=== PATIENT | male | born 1950 | race Caucasian/White ===

== ENCOUNTER 2019-09-04 10:44 | Inpatient (IN) | payer OTHER ==
[~2019-09-04] VITALS: Ht 170.2 cm; Wt 91.2 kg
[2019-09-04 10:30] VITALS: BP 137/73
[2019-09-04 11:18] LABS: ABG BASE EXCESS 1.7 mmol/L (-2.0-2.0); ARTERIAL BLOOD GAS PH 7.364 (7.35-7.45)
[2019-09-04] MEDS ORDERED: ASPIRIN ADULT L81 M1 PO (11:23)
[2019-09-04] MEDS ORDERED: PROAIR HFA8.5 GM INH (11:23)
[2019-09-04] MEDS ORDERED: ATORVASTATIN CA40 M1 PO (11:24)
[2019-09-04] MEDS ORDERED: VITAMIN D325 MCG PO (11:25)
[2019-09-04] MEDS ORDERED: CYMBALTA30 MG PO (11:25)
[2019-09-04] MEDS ORDERED: LISINOPRIL20 MG PO (11:25)
[2019-09-04] MEDS ORDERED: METFORMIN HYDR500 MG PO (11:26)
[2019-09-04] MEDS ORDERED: OMEPRAZOLE MAGN20 MG PO (11:26)
[2019-09-04 11:57] LABS: HEMATOCRIT 43.2 % (42.0-52.0); MEAN CELL VOLUME 90.4 fl (80.0-94.0); MEAN CORPUSCULAR HGB 28.9 pg (27.0-31.0); MEAN CORPUSCULAR HGB CONC 31.9 g/dl (33.0-37.0); MEAN PLATELET VOLUME 9.3 fl (9.6-12.3); PLATELET COUNT AUTOMATED 222 10*3/uL (130-400); RED BLOOD COUNT 4.78 10*6/uL (4.50-5.90); RED CELL DISTRI WIDTH 13.6 % (0-14.5); WHITE BLOOD COUNT 13.2 10*3/uL (4.8-10.8)
[2019-09-04 12:19] LABS: ALBUMIN 3.5 gm/dl (3.1-4.5); ALKALINE PHOSPHATASE 74 U/L (45-117); BUN 16 mg/dl (7-24); CHLORIDE 106 mmol/L (98-107); CREATININE 1.07 mg/dL (0.70-1.30); LDH 155 U/L (87-241); POTASSIUM 4.1 mmol/L (3.5-5.1); SGOT/AST 15 IU/L (3-35); SGPT/ALT 22 U/L (12-78); SODIUM 138 mmol/L (136-145); TOTAL PROTEIN 7.5 gm/dL (6.4-8.2)
[2019-09-04 12:21] LABS: TROPONIN I < 0.015 ng/ml (<0.045)
[2019-09-04 12:32] LABS: BASOPHILS 2 % (0-1); PLATELET SUFFICIENCY NORMAL (NORMAL); TOTAL CELLS COUNTED 100 #CELLS
[2019-09-04 16:00] VITALS: BP 122/59
[2019-09-05] VITALS: BP 131/78
[2019-09-05 04:00] VITALS: BP 133/67
[2019-09-05 06:08] LABS: HEP B CORE AB, IGM Negative (Negative); HEPATITIS B SURFACE AG Negative (Negative); HEPATITIS C VIRUS ANTIBODY >11.0 s/co (0.0-0.9)
[2019-09-05 06:09] LABS: HEMATOCRIT 44.7 % (42.0-52.0); MEAN CELL VOLUME 91.2 fl (80.0-94.0); MEAN CORPUSCULAR HGB 29.2 pg (27.0-31.0); MEAN PLATELET VOLUME 9.7 fl (9.6-12.3); PLATELET COUNT AUTOMATED 219 10*3/uL (130-400); RED CELL DISTRI WIDTH 13.7 % (0-14.5); WHITE BLOOD COUNT 14.3 10*3/uL (4.8-10.8)
[2019-09-05 06:35] LABS: ALBUMIN 3.6 gm/dl (3.1-4.5); ALKALINE PHOSPHATASE 81 U/L (45-117); BUN 16 mg/dl (7-24); CHLORIDE 105 mmol/L (98-107); CPK 100 U/L (39-308); CREATININE 1.03 mg/dL (0.70-1.30); POTASSIUM 4.2 mmol/L (3.5-5.1); SGOT/AST 14 IU/L (3-35); SGPT/ALT 24 U/L (12-78); SODIUM 139 mmol/L (136-145); TOTAL PROTEIN 7.7 gm/dL (6.4-8.2)
[2019-09-05 07:10] LABS: BASOPHILS 1 % (0-1); PLATELET SUFFICIENCY NORMAL (NORMAL); TOTAL CELLS COUNTED 100 #CELLS
[2019-09-05 08:00] VITALS: BP 134/66
[2019-09-05 08:41] LABS: ABG BASE EXCESS 3.4 mmol/L (-2.0-2.0); ARTERIAL BLOOD GAS PH 7.354 (7.35-7.45)
[2019-09-05 12:00] VITALS: BP 120/60
[2019-09-05 16:00] VITALS: BP 120/64
[2019-09-05 20:00] VITALS: BP 129/65
[2019-09-06] VITALS: BP 135/68
[2019-09-06 05:45] LABS: BASO % 0.1 % (0.0-1.0); EOS % 0.1 % (1.0-4.0); HEMATOCRIT 45.4 % (42.0-52.0); LYMPH # 0.7 10*3/uL (1.3-4.4); LYMPH % 8.1 % (27.0-41.0); MEAN CELL VOLUME 89.2 fl (80.0-94.0); MEAN CORPUSCULAR HGB 28.7 pg (27.0-31.0); MEAN CORPUSCULAR HGB CONC 32.2 g/dl (33.0-37.0); MEAN PLATELET VOLUME 9.6 fl (9.6-12.3); MONO # 0.3 10*3/uL (0.1-1.0); MONO % 3.5 % (3.0-9.0); NEUT % 87.8 % (47.0-73.0); PLATELET COUNT AUTOMATED 244 10*3/uL (130-400); RED BLOOD COUNT 5.09 10*6/uL (4.50-5.90); RED CELL DISTRI WIDTH 13.3 % (0-14.5); WHITE BLOOD COUNT 9.2 10*3/uL (4.8-10.8)
[2019-09-06 07:35] LABS: ALBUMIN 3.7 gm/dl (3.1-4.5); ALKALINE PHOSPHATASE 81 U/L (45-117); BUN 25 mg/dl (7-24); CHLORIDE 104 mmol/L (98-107); CREATININE 1.04 mg/dL (0.70-1.30); POTASSIUM 4.3 mmol/L (3.5-5.1); SGOT/AST 13 IU/L (3-35); SGPT/ALT 26 U/L (12-78); SODIUM 138 mmol/L (136-145); TOTAL PROTEIN 8.2 gm/dL (6.4-8.2)
[2019-09-06 07:40] LABS: CPK 59 U/L (39-308)
[2019-09-06 08:00] VITALS: BP 142/68
[2019-09-06 09:39] LABS: HEPATITIS C AB >11.0 (0.0-0.9)
[2019-09-06 12:00] VITALS: BP 147/79
[2019-09-06 12:02] LABS: ABG BASE EXCESS 3.3 mmol/L (-2.0-2.0); ARTERIAL BLOOD GAS PH 7.398 (7.35-7.45)
[2019-09-06 16:00] VITALS: BP 138/68
[2019-09-06 20:00] VITALS: BP 142/67
[2019-09-07] VITALS: BP 133/64
[2019-09-07 06:46] LABS: HEMATOCRIT 46.3 % (42.0-52.0); MEAN CELL VOLUME 90.6 fl (80.0-94.0); MEAN CORPUSCULAR HGB 28.8 pg (27.0-31.0); MEAN CORPUSCULAR HGB CONC 31.7 g/dl (33.0-37.0); MEAN PLATELET VOLUME 9.9 fl (9.6-12.3); PLATELET COUNT AUTOMATED 258 10*3/uL (130-400); RED BLOOD COUNT 5.11 10*6/uL (4.50-5.90); RED CELL DISTRI WIDTH 13.5 % (0-14.5); WHITE BLOOD COUNT 13.1 10*3/uL (4.8-10.8)
[2019-09-07 06:51] LABS: ALBUMIN 3.6 gm/dl (3.1-4.5); ALKALINE PHOSPHATASE 73 U/L (45-117); BUN 34 mg/dl (7-24); CHLORIDE 103 mmol/L (98-107); CPK 50 U/L (39-308); CREATININE 1.01 mg/dL (0.70-1.30); POTASSIUM 4.1 mmol/L (3.5-5.1); SGOT/AST 13 IU/L (3-35); SGPT/ALT 27 U/L (12-78); SODIUM 138 mmol/L (136-145); TOTAL PROTEIN 7.9 gm/dL (6.4-8.2)
[2019-09-07 07:24] LABS: ABG BASE EXCESS 3.2 mmol/L (-2.0-2.0); ARTERIAL BLOOD GAS PH 7.394 (7.35-7.45)
[2019-09-07 07:25] LABS: PLATELET SUFFICIENCY NORMAL (NORMAL); TOTAL CELLS COUNTED 100 #CELLS
[2019-09-07 08:00] VITALS: BP 132/66
[2019-09-07 12:00] VITALS: BP 131/64
[2019-09-07 16:00] VITALS: BP 120/74
[2019-09-07 20:00] VITALS: BP 125/57
[2019-09-08] VITALS: BP 112/60
[2019-09-08 06:17] LABS: BASO % 0.1 % (0.0-1.0); HEMATOCRIT 43.8 % (42.0-52.0); LYMPH # 0.7 10*3/uL (1.3-4.4); LYMPH % 6.5 % (27.0-41.0); MEAN CELL VOLUME 89.8 fl (80.0-94.0); MEAN CORPUSCULAR HGB 28.5 pg (27.0-31.0); MEAN CORPUSCULAR HGB CONC 31.7 g/dl (33.0-37.0); MEAN PLATELET VOLUME 9.9 fl (9.6-12.3); MONO # 0.8 10*3/uL (0.1-1.0); MONO % 7.5 % (3.0-9.0); NEUT # 9.5 10*3/uL (2.3-7.9); NEUT % 85.4 % (47.0-73.0); PLATELET COUNT AUTOMATED 249 10*3/uL (130-400); RED BLOOD COUNT 4.88 10*6/uL (4.50-5.90); RED CELL DISTRI WIDTH 13.5 % (0-14.5); WHITE BLOOD COUNT 11.2 10*3/uL (4.8-10.8)
[2019-09-08 06:22] LABS: ALBUMIN 3.3 gm/dl (3.1-4.5); ALKALINE PHOSPHATASE 63 U/L (45-117); BUN 29 mg/dl (7-24); CHLORIDE 104 mmol/L (98-107); CREATININE 0.87 mg/dL (0.70-1.30); POTASSIUM 3.9 mmol/L (3.5-5.1); SGOT/AST 14 IU/L (3-35); SGPT/ALT 35 U/L (12-78); SODIUM 140 mmol/L (136-145); TOTAL PROTEIN 7.1 gm/dL (6.4-8.2)
[2019-09-08 08:00] VITALS: BP 137/74
[2019-09-08 08:42] LABS: ABG BASE EXCESS 5.2 mmol/L (-2.0-2.0); ARTERIAL BLOOD GAS PH 7.425 (7.35-7.45)
[2019-09-08 12:00] VITALS: BP 122/52
[2019-09-08 16:00] VITALS: BP 118/52
[2019-09-08 20:00] VITALS: BP 124/60
[2019-09-09] VITALS: BP 134/60
[2019-09-09 06:38] LABS: BASO % 0.1 % (0.0-1.0); HEMATOCRIT 43.8 % (42.0-52.0); LYMPH # 0.9 10*3/uL (1.3-4.4); LYMPH % 8.5 % (27.0-41.0); MEAN CELL VOLUME 90.9 fl (80.0-94.0); MEAN PLATELET VOLUME 9.7 fl (9.6-12.3); MONO # 0.9 10*3/uL (0.1-1.0); MONO % 8.9 % (3.0-9.0); NEUT # 8.3 10*3/uL (2.3-7.9); PLATELET COUNT AUTOMATED 234 10*3/uL (130-400); RED BLOOD COUNT 4.82 10*6/uL (4.50-5.90); RED CELL DISTRI WIDTH 13.8 % (0-14.5); WHITE BLOOD COUNT 10.2 10*3/uL (4.8-10.8)
[2019-09-09 06:55] LABS: ALBUMIN 3.2 gm/dl (3.1-4.5); ALKALINE PHOSPHATASE 49 U/L (45-117); BUN 32 mg/dl (7-24); CHLORIDE 104 mmol/L (98-107); CREATININE 1.02 mg/dL (0.70-1.30); POTASSIUM 4.5 mmol/L (3.5-5.1); SGOT/AST 14 IU/L (3-35); SGPT/ALT 47 U/L (12-78); SODIUM 139 mmol/L (136-145); TOTAL PROTEIN 6.9 gm/dL (6.4-8.2)
[2019-09-09 07:43] LABS: ABG BASE EXCESS 4.5 mmol/L (-2.0-2.0); ARTERIAL BLOOD GAS PH 7.407 (7.35-7.45)
[2019-09-09 08:00] VITALS: BP 126/50
[2019-09-09 12:00] VITALS: BP 138/74
[2019-09-09 16:00] VITALS: BP 124/67
[2019-09-09 20:00] VITALS: BP 131/63
[2019-09-10] VITALS: BP 131/69
[2019-09-10 05:54] LABS: HEMATOCRIT 44.4 % (42.0-52.0); LYMPH # 0.8 10*3/uL (1.3-4.4); LYMPH % 8.2 % (27.0-41.0); MEAN CELL VOLUME 90.6 fl (80.0-94.0); MEAN CORPUSCULAR HGB 28.2 pg (27.0-31.0); MEAN CORPUSCULAR HGB CONC 31.1 g/dl (33.0-37.0); MEAN PLATELET VOLUME 9.9 fl (9.6-12.3); MONO # 0.6 10*3/uL (0.1-1.0); MONO % 6.4 % (3.0-9.0); PLATELET COUNT AUTOMATED 225 10*3/uL (130-400); RED CELL DISTRI WIDTH 13.6 % (0-14.5); WHITE BLOOD COUNT 9.4 10*3/uL (4.8-10.8)
[2019-09-10 06:21] LABS: ALBUMIN 3.1 gm/dl (3.1-4.5); ALKALINE PHOSPHATASE 62 U/L (45-117); BUN 26 mg/dl (7-24); CHLORIDE 104 mmol/L (98-107); CREATININE 0.86 mg/dL (0.70-1.30); POTASSIUM 4.8 mmol/L (3.5-5.1); SGOT/AST 14 IU/L (3-35); SGPT/ALT 41 U/L (12-78); SODIUM 137 mmol/L (136-145); TOTAL PROTEIN 6.7 gm/dL (6.4-8.2)
[2019-09-10 08:00] VITALS: BP 128/54
[2019-09-10 08:29] LABS: ABG BASE EXCESS 3.6 mmol/L (-2.0-2.0); ARTERIAL BLOOD GAS PH 7.42 (7.35-7.45)
[2019-09-10 11:52] LABS: ARTERIAL BLOOD GAS PH 7.442 (7.35-7.45)
[2019-09-10 12:00] VITALS: BP 124/64
[2019-09-10 16:00] VITALS: BP 128/80
[2019-09-10 20:00] VITALS: BP 135/76
[2019-09-11] VITALS: BP 124/61
[2019-09-11 06:08] LABS: BASO % 0.3 % (0.0-1.0); EOS # 0.6 10*3/uL (0.0-0.4); EOS % 4.9 % (1.0-4.0); LYMPH # 3.2 10*3/uL (1.3-4.4); LYMPH % 28.1 % (27.0-41.0); MEAN CELL VOLUME 92.5 fl (80.0-94.0); MEAN CORPUSCULAR HGB 28.7 pg (27.0-31.0); MEAN CORPUSCULAR HGB CONC 31.1 g/dl (33.0-37.0); MEAN PLATELET VOLUME 9.6 fl (9.6-12.3); MONO # 0.9 10*3/uL (0.1-1.0); MONO % 7.7 % (3.0-9.0); NEUT # 6.8 10*3/uL (2.3-7.9); NEUT % 58.5 % (47.0-73.0); PLATELET COUNT AUTOMATED 233 10*3/uL (130-400); RED BLOOD COUNT 5.08 10*6/uL (4.50-5.90); RED CELL DISTRI WIDTH 13.5 % (0-14.5); WHITE BLOOD COUNT 11.5 10*3/uL (4.8-10.8)
[2019-09-11 06:26] LABS: ALBUMIN 3.2 gm/dl (3.1-4.5); BUN 30 mg/dl (7-24); CHLORIDE 102 mmol/L (98-107); POTASSIUM 4.5 mmol/L (3.5-5.1); SODIUM 139 mmol/L (136-145)
[2019-09-11 06:30] LABS: ALKALINE PHOSPHATASE 63 U/L (45-117); CREATININE 1.05 mg/dL (0.70-1.30); SGOT/AST 17 IU/L (3-35); SGPT/ALT 44 U/L (12-78); TOTAL PROTEIN 6.7 gm/dL (6.4-8.2)
[2019-09-11 08:00] VITALS: BP 127/67
[2019-09-11 09:12] LABS: ARTERIAL BLOOD GAS PH 7.449 (7.35-7.45)
[2019-09-11 10:06] LABS: HEPATITIS C QUANTITATION HCV Not Detected IU/mL (.)
[2019-09-11 16:00] VITALS: BP 147/68
== END 2019-09-11 18:22 | DRG 871 ==
LOC: 4E 10:44
PROVIDERS: Family Medicine; Internal Medicine; Internal Medicine Critical Care Medicine; Student in an Organized Health Care Education/Training Program; ADMIT Internal Medicine
DX: A41.9 Sepsis, unspecified organism (principal); J96.01 Acute respiratory failure with hypoxia; J96.02 Acute respiratory failure with hypercapnia; U07.1 COVID-19; J44.1 Chronic obstructive pulmonary disease with (acute) exacerbation; E87.3 Alkalosis; J45.901 Unspecified asthma with (acute) exacerbation; D68.59 Other primary thrombophilia; D64.9 Anemia, unspecified; E78.5 Hyperlipidemia, unspecified; K21.9 Gastro-esophageal reflux disease without esophagitis; I10 Essential (primary) hypertension; E11.65 Type 2 diabetes mellitus with hyperglycemia; I71.4 Abdominal aortic aneurysm, without rupture; R65.20 Severe sepsis without septic shock; B18.2 Chronic viral hepatitis C; E83.41 Hypermagnesemia; T38.0X5A Adverse effect of glucocorticoids and synthetic analogues, initial encounter; Y92.238 Other place in hospital as the place of occurrence of the external cause; Z87.891 Personal history of nicotine dependence; Z88.8 Allergy status to other drugs, medicaments and biological substances; Z83.3 Family history of diabetes mellitus; Z79.899 Other long term (current) drug therapy; Z79.82 Long term (current) use of aspirin; Z79.84 Long term (current) use of oral hypoglycemic drugs; R70.0 Elevated erythrocyte sedimentation rate; R79.82 Elevated C-reactive protein (CRP)

== ENCOUNTER 2019-10-11 09:58 | Inpatient (IN) | payer OTHER ==
[~2019-10-11] VITALS: Ht 175.3 cm; Wt 94.1 kg
[2019-10-11 09:58] VITALS: BP 110/0
[~2019-10-11 09:58] MED LIST: ASPIRIN ADULT L81 M1 PO; ATORVASTATIN CA40 M1 PO; CYMBALTA30 MG PO; LISINOPRIL20 MG PO; METFORMIN HYDR500 MG PO; OMEPRAZOLE MAGN20 MG PO; PROAIR HFA8.5 GM INH; VITAMIN D325 MCG PO
[2019-10-11] MEDS ORDERED: VITAMIN D325 MC1 PO (10:06)
[2019-10-11] MEDS ORDERED: ASMANEX INH (10:07)
[2019-10-11 10:26] LABS: BASO # 0.2 10*3/uL (0.0-0.1); BASO % 1.4 % (0.0-1.0); EOS # 1.9 10*3/uL (0.0-0.4); EOS % 15.6 % (1.0-4.0); HEMATOCRIT 43.6 % (42.0-52.0); LYMPH # 2.3 10*3/uL (1.3-4.4); LYMPH % 18.9 % (27.0-41.0); MEAN CELL VOLUME 88.4 fl (80.0-94.0); MEAN CORPUSCULAR HGB 28.6 pg (27.0-31.0); MEAN CORPUSCULAR HGB CONC 32.3 g/dl (33.0-37.0); MEAN PLATELET VOLUME 9.3 fl (9.6-12.3); MONO # 1.3 10*3/uL (0.1-1.0); NEUT # 6.2 10*3/uL (2.3-7.9); NEUT % 52.1 % (47.0-73.0); PLATELET COUNT AUTOMATED 275 10*3/uL (130-400); RED BLOOD COUNT 4.93 10*6/uL (4.50-5.90); RED CELL DISTRI WIDTH 13.7 % (0-14.5)
[2019-10-11 10:38] LABS: ACT PARTIAL THROMBO TIME 24.3 SECONDS (20.0-32.1)
[2019-10-11 10:43] LABS: ALBUMIN 3.7 gm/dl (3.1-4.5); ALKALINE PHOSPHATASE 77 U/L (45-117); BUN 19 mg/dl (7-24); CHLORIDE 110 mmol/L (98-107); CPK 54 U/L (39-308); CREATININE 1.05 mg/dL (0.70-1.30); LDH 170 U/L (87-241); POTASSIUM 3.9 mmol/L (3.5-5.1); SGOT/AST 12 IU/L (3-35); SGPT/ALT 23 U/L (12-78); SODIUM 142 mmol/L (136-145); TOTAL PROTEIN 7.6 gm/dL (6.4-8.2)
[2019-10-11 10:45] LABS: TROPONIN I < 0.015 ng/ml (<0.045)
[2019-10-11 10:54] LABS: ARTERIAL BLOOD GAS PH 7.283 (7.35-7.45)
[2019-10-11 11:33] VITALS: BP 150/97
[2019-10-11 14:35] VITALS: BP 110/63
[2019-10-11 14:58] VITALS: BP 118/61
[2019-10-11 15:02] LABS: ABG BASE EXCESS -1.3 mmol/L (-2.0-2.0); ARTERIAL BLOOD GAS PH 7.329 (7.35-7.45)
[2019-10-11 20:00] VITALS: BP 118/58
[2019-10-12] VITALS: BP 106/60
[2019-10-12 06:35] LABS: BASO % 0.2 % (0.0-1.0); EOS % 0.1 % (1.0-4.0); HEMATOCRIT 32.1 % (42.0-52.0); LYMPH # 0.6 10*3/uL (1.3-4.4); LYMPH % 6.5 % (27.0-41.0); MEAN CELL VOLUME 91.5 fl (80.0-94.0); MEAN CORPUSCULAR HGB 28.8 pg (27.0-31.0); MEAN CORPUSCULAR HGB CONC 31.5 g/dl (33.0-37.0); MEAN PLATELET VOLUME 9.6 fl (9.6-12.3); MONO # 0.3 10*3/uL (0.1-1.0); MONO % 3.8 % (3.0-9.0); NEUT # 7.5 10*3/uL (2.3-7.9); NEUT % 88.8 % (47.0-73.0); PLATELET COUNT AUTOMATED 169 10*3/uL (130-400); RED BLOOD COUNT 3.51 10*6/uL (4.50-5.90); WHITE BLOOD COUNT 8.4 10*3/uL (4.8-10.8)
[2019-10-12 06:43] LABS: ACT PARTIAL THROMBO TIME 26.9 SECONDS (20.0-32.1); INTERNATIONAL NORM RATIO 1.2 (2.0-3.5)
[2019-10-12 06:45] LABS: ALBUMIN 2.5 gm/dl (3.1-4.5); ALKALINE PHOSPHATASE 47 U/L (45-117); BUN 12 mg/dl (7-24); CHLORIDE 119 mmol/L (98-107); CHOLESTEROL 81 mg/dL (<200); CREATININE 0.65 mg/dL (0.70-1.30); FREE T4 1.04 ng/dl (0.76-1.46); HDL CHOLESTEROL 30 mg/dl (40-60); LDL CHOLESTEROL 45 mg/dL (9-159); POTASSIUM 3.3 mmol/L (3.5-5.1); SGOT/AST 8 IU/L (3-35); SGPT/ALT 14 U/L (12-78); SODIUM 146 mmol/L (136-145); TRIGLYCERIDES 30 mg/dl (<150); VLDL CHOLESTEROL 6 mg/dL (6-40)
[2019-10-12 06:50] LABS: THYROID STIM HORMONE (HS) 0.395 uIU/ml (0.358-4.75)
[2019-10-12 07:45] LABS: ABG BASE EXCESS -1.2 mmol/L (-2.0-2.0); ARTERIAL BLOOD GAS PH 7.369 (7.35-7.45)
[2019-10-12 08:00] VITALS: BP 108/63
[2019-10-12 08:17] LABS: VITAMIN D, 25-HYDROXY 68.5 ng/mL (30-100)
[2019-10-12 08:44] LABS: BACTERIA TRACE; BILIRUBIN NEGATIVE (NEGATIVE); BLOOD NEGATIVE (NEGATIVE); CLARITY SL CLOUDY (CLEAR); COLOR YELLOW (YELLOW); GLUCOSE 2+ (NEGATIVE); KETONE NEGATIVE (NEGATIVE); LEUKO ESTERASE NEGATIVE (NEGATIVE); NITRITE NEGATIVE (NEGATIVE); RBC 0-2 rbc/hpf (0-2); SPECIFIC GRAVITY 1.015 (1.005-1.030); UROBILINOGEN 0.2 E.U./dl (0.2-1.0); WBC 0-2 wbc/hpf (0-5)
[2019-10-12 12:00] VITALS: BP 114/65
[2019-10-12 16:00] VITALS: BP 115/59
[2019-10-12 20:00] VITALS: BP 135/78
[2019-10-13] VITALS: BP 127/72
[2019-10-13 06:25] LABS: HEMATOCRIT 38.6 % (42.0-52.0); MEAN CELL VOLUME 91.7 fl (80.0-94.0); MEAN CORPUSCULAR HGB 27.8 pg (27.0-31.0); MEAN CORPUSCULAR HGB CONC 30.3 g/dl (33.0-37.0); MEAN PLATELET VOLUME 9.6 fl (9.6-12.3); PLATELET COUNT AUTOMATED 213 10*3/uL (130-400); RED BLOOD COUNT 4.21 10*6/uL (4.50-5.90); RED CELL DISTRI WIDTH 14.2 % (0-14.5)
[2019-10-13 06:47] LABS: BUN 19 mg/dl (7-24); CHLORIDE 113 mmol/L (98-107)
[2019-10-13 06:51] LABS: ALKALINE PHOSPHATASE 59 U/L (45-117); CREATININE 0.89 mg/dL (0.70-1.30); SGOT/AST 16 IU/L (3-35); SGPT/ALT 21 U/L (12-78); TOTAL PROTEIN 6.1 gm/dL (6.4-8.2)
[2019-10-13 06:52] LABS: PLATELET SUFFICIENCY NORMAL (NORMAL); TOTAL CELLS COUNTED 100 #CELLS; TOXIC GRANULATION SLIGHT; VACUOLATION OF NEUTROPHILS SLIGHT
[2019-10-13 06:53] LABS: BURR CELLS FEW; OVALOCYTES FEW
[2019-10-13 06:56] LABS: SODIUM 142 mmol/L (136-145)
[2019-10-13 06:59] LABS: POTASSIUM 4.9 mmol/L (3.5-5.1)
[2019-10-13 08:00] VITALS: BP 139/61
[2019-10-13 12:00] VITALS: BP 137/67
[2019-10-13 20:00] VITALS: BP 137/67
[2019-10-14] VITALS: BP 115/74
[2019-10-14 06:42] LABS: BASO % 0.2 % (0.0-1.0); HEMATOCRIT 39.8 % (42.0-52.0); LYMPH # 0.8 10*3/uL (1.3-4.4); LYMPH % 6.8 % (27.0-41.0); MEAN CELL VOLUME 89.8 fl (80.0-94.0); MEAN CORPUSCULAR HGB 28.2 pg (27.0-31.0); MEAN CORPUSCULAR HGB CONC 31.4 g/dl (33.0-37.0); MEAN PLATELET VOLUME 9.4 fl (9.6-12.3); MONO # 0.7 10*3/uL (0.1-1.0); MONO % 6.1 % (3.0-9.0); NEUT # 9.9 10*3/uL (2.3-7.9); NEUT % 85.6 % (47.0-73.0); PLATELET COUNT AUTOMATED 204 10*3/uL (130-400); RED BLOOD COUNT 4.43 10*6/uL (4.50-5.90); RED CELL DISTRI WIDTH 14.1 % (0-14.5); WHITE BLOOD COUNT 11.5 10*3/uL (4.8-10.8)
[2019-10-14 07:14] LABS: ALBUMIN 3.1 gm/dl (3.1-4.5); ALKALINE PHOSPHATASE 59 U/L (45-117); BUN 21 mg/dl (7-24); CHLORIDE 107 mmol/L (98-107); CREATININE 0.99 mg/dL (0.70-1.30); POTASSIUM 4.4 mmol/L (3.5-5.1); SGOT/AST 14 IU/L (3-35); SGPT/ALT 24 U/L (12-78); SODIUM 141 mmol/L (136-145); TOTAL PROTEIN 6.4 gm/dL (6.4-8.2)
[2019-10-14 08:00] VITALS: BP 126/80
[2019-10-14 12:00] VITALS: BP 154/74
[2019-10-14 12:19] LABS: LDH 183 U/L (87-241)
[2019-10-14 12:52] LABS: ACT PARTIAL THROMBO TIME 24.1 SECONDS (20.0-32.1); INTERNATIONAL NORM RATIO 1.1 (2.0-3.5)
[2019-10-14 16:00] VITALS: BP 147/64
[2019-10-14 20:00] VITALS: BP 130/77
[2019-10-15] VITALS: BP 142/65
[2019-10-15 06:12] LABS: BASO % 0.3 % (0.0-1.0); HEMATOCRIT 33.4 % (42.0-52.0); LYMPH # 0.7 10*3/uL (1.3-4.4); LYMPH % 9.6 % (27.0-41.0); MEAN CORPUSCULAR HGB 28.3 pg (27.0-31.0); MEAN CORPUSCULAR HGB CONC 31.4 g/dl (33.0-37.0); MEAN PLATELET VOLUME 9.5 fl (9.6-12.3); MONO # 0.6 10*3/uL (0.1-1.0); NEUT # 5.9 10*3/uL (2.3-7.9); NEUT % 79.9 % (47.0-73.0); PLATELET COUNT AUTOMATED 169 10*3/uL (130-400); RED BLOOD COUNT 3.71 10*6/uL (4.50-5.90); RED CELL DISTRI WIDTH 13.7 % (0-14.5); WHITE BLOOD COUNT 7.4 10*3/uL (4.8-10.8)
[2019-10-15 06:13] LABS: ALBUMIN 2.4 gm/dl (3.1-4.5); ALKALINE PHOSPHATASE 44 U/L (45-117); BUN 18 mg/dl (7-24); CHLORIDE 113 mmol/L (98-107); CREATININE 0.72 mg/dL (0.70-1.30); POTASSIUM 3.9 mmol/L (3.5-5.1); SGOT/AST 11 IU/L (3-35); SGPT/ALT 21 U/L (12-78); SODIUM 143 mmol/L (136-145); TOTAL PROTEIN 4.9 gm/dL (6.4-8.2)
[2019-10-15 08:00] VITALS: BP 154/65
[2019-10-15 12:00] VITALS: BP 143/71
[2019-10-15 16:00] VITALS: BP 150/88
[2019-10-15 20:00] VITALS: BP 160/74
[2019-10-16] VITALS (9 sets, daily range): BP systolic 111–148; BP diastolic 68–90
[2019-10-16 06:35] LABS: HEMATOCRIT 41.5 % (42.0-52.0); MEAN CELL VOLUME 89.4 fl (80.0-94.0); MEAN CORPUSCULAR HGB 28.2 pg (27.0-31.0); MEAN CORPUSCULAR HGB CONC 31.6 g/dl (33.0-37.0); MEAN PLATELET VOLUME 9.4 fl (9.6-12.3); PLATELET COUNT AUTOMATED 200 10*3/uL (130-400); RED BLOOD COUNT 4.64 10*6/uL (4.50-5.90); RED CELL DISTRI WIDTH 13.6 % (0-14.5); WHITE BLOOD COUNT 9.9 10*3/uL (4.8-10.8)
[2019-10-16 06:58] LABS: ALBUMIN 3.2 gm/dl (3.1-4.5); ALKALINE PHOSPHATASE 55 U/L (45-117); BUN 23 mg/dl (7-24); CHLORIDE 103 mmol/L (98-107); CREATININE 0.96 mg/dL (0.70-1.30); POTASSIUM 4.4 mmol/L (3.5-5.1); SGOT/AST 13 IU/L (3-35); SGPT/ALT 30 U/L (12-78); SODIUM 140 mmol/L (136-145); TOTAL PROTEIN 6.3 gm/dL (6.4-8.2)
[2019-10-16 08:14] LABS: PLATELET SUFFICIENCY NORMAL (NORMAL); TOTAL CELLS COUNTED 100 #CELLS
[2019-10-16] MEDS ORDERED: PREDNISONE10 MG PO (11:48)
[2019-10-16] MEDS ORDERED: NATURE'S BLEND F1 MG PO (11:48)
[2019-10-16] MEDS ORDERED: OMNICEF300 MG PO (11:48)
[2019-10-17] VITALS: BP 134/60
[2019-10-17 08:00] VITALS: BP 136/58
[2019-10-17 14:08] LABS: ACID FAST SPEC PROCESSING Concentration (.)
== END 2019-10-17 14:05 | DRG 871 ==
LOC: ED 09:58 → EDHOLD 11:14 → 4E 11:14
PROVIDERS: Emergency Medicine; Internal Medicine; Internal Medicine Critical Care Medicine; ADMIT Internal Medicine
PROC: 5A09357 Assistance with Respiratory Ventilation, Less than 24 Consecutive Hours, Continuous Positive Airway Pressure (ICD-10-PCS; principal; 2019-10-11)
PROC: 5A09357 Assistance with Respiratory Ventilation, Less than 24 Consecutive Hours, Continuous Positive Airway Pressure (ICD-10-PCS; 2019-10-12)
PROC: 5A09357 Assistance with Respiratory Ventilation, Less than 24 Consecutive Hours, Continuous Positive Airway Pressure (ICD-10-PCS; 2019-10-13)
PROC: 5A09357 Assistance with Respiratory Ventilation, Less than 24 Consecutive Hours, Continuous Positive Airway Pressure (ICD-10-PCS; 2019-10-14)
PROC: 5A09357 Assistance with Respiratory Ventilation, Less than 24 Consecutive Hours, Continuous Positive Airway Pressure (ICD-10-PCS; 2019-10-15)
PROC: 0BC98ZZ Extirpation of Matter from Lingula Bronchus, Via Natural or Artificial Opening Endoscopic (ICD-10-PCS; 2019-10-16)
PROC: 0BC78ZZ Extirpation of Matter from Left Main Bronchus, Via Natural or Artificial Opening Endoscopic (ICD-10-PCS; 2019-10-16)
PROC: 0BC68ZZ Extirpation of Matter from Right Lower Lobe Bronchus, Via Natural or Artificial Opening Endoscopic (ICD-10-PCS; 2019-10-16)
PROC: 0BCB8ZZ Extirpation of Matter from Left Lower Lobe Bronchus, Via Natural or Artificial Opening Endoscopic (ICD-10-PCS; 2019-10-16)
PROC: 0BC48ZZ Extirpation of Matter from Right Upper Lobe Bronchus, Via Natural or Artificial Opening Endoscopic (ICD-10-PCS; 2019-10-16)
PROC: 0BC88ZZ Extirpation of Matter from Left Upper Lobe Bronchus, Via Natural or Artificial Opening Endoscopic (ICD-10-PCS; 2019-10-16)
PROC: 0BC58ZZ Extirpation of Matter from Right Middle Lobe Bronchus, Via Natural or Artificial Opening Endoscopic (ICD-10-PCS; 2019-10-16)
PROC: 0BC38ZZ Extirpation of Matter from Right Main Bronchus, Via Natural or Artificial Opening Endoscopic (ICD-10-PCS; 2019-10-16)
PROC: 5A09357 Assistance with Respiratory Ventilation, Less than 24 Consecutive Hours, Continuous Positive Airway Pressure (ICD-10-PCS; 2019-10-16)
PROC: 0BC28ZZ Extirpation of Matter from Carina, Via Natural or Artificial Opening Endoscopic (ICD-10-PCS; 2019-10-16)
PROC: 5A09357 Assistance with Respiratory Ventilation, Less than 24 Consecutive Hours, Continuous Positive Airway Pressure (ICD-10-PCS; 2019-10-17)
DX: A41.9 Sepsis, unspecified organism (principal); J96.01 Acute respiratory failure with hypoxia; J96.02 Acute respiratory failure with hypercapnia; E43 Unspecified severe protein-calorie malnutrition; E87.2 Acidosis; J45.41 Moderate persistent asthma with (acute) exacerbation; J44.1 Chronic obstructive pulmonary disease with (acute) exacerbation; E87.0 Hyperosmolality and hypernatremia; R65.20 Severe sepsis without septic shock; E53.8 Deficiency of other specified B group vitamins; E83.42 Hypomagnesemia; E87.6 Hypokalemia; D64.9 Anemia, unspecified; B18.2 Chronic viral hepatitis C; K86.89 Other specified diseases of pancreas; E78.5 Hyperlipidemia, unspecified; K21.9 Gastro-esophageal reflux disease without esophagitis; F32.9 Major depressive disorder, single episode, unspecified; I10 Essential (primary) hypertension; E11.65 Type 2 diabetes mellitus with hyperglycemia; E87.8 Other disorders of electrolyte and fluid balance, not elsewhere classified; Z20.828 Contact with and (suspected) exposure to other viral communicable diseases; Z87.891 Personal history of nicotine dependence; Z88.8 Allergy status to other drugs, medicaments and biological substances; Z79.82 Long term (current) use of aspirin; Z79.899 Other long term (current) drug therapy; Z83.3 Family history of diabetes mellitus; Z86.19 Personal history of other infectious and parasitic diseases; Z68.28 Body mass index [BMI] 28.0-28.9, adult